=== PATIENT | male | born 1975 | race Caucasian/White ===

== ENCOUNTER → 2017-05-18 | Outpatient (CLI) | payer BC ==
--- NOTE | 2017-05-18 11:00 | P.STRESS ---
- Stress Test Note Stress Test Results/Findings: Exam Performed: stress test Exam Date: 05/18/17 Height: 5 ft 9 in Weight: 99.337 kg Protocol: jazmine Stage: 4 Duration of Exercise: 11:00 Resting Heart Rate: 89 Resting Blood Pressure: 120/86 Maximum Achieved Heart Rate: 164 Maximum Achieved Blood Pressure: 186/73 85% PMHR: 151 100% PMHR: 178 METS: 12.1 Technologist Comment: Stress Test Results/Findings: Baseline EKG shows sinus rhythm normal lites normal intervals. Patient exercised on Jazmine protocol for a total of 11 minutes achieving 12 metastases 92 % of predicted maximum heart rate without chest pain or diagnostic ST segment depression Conclusions Excellent exercise tolerance Negative stress test by EKG criteria
== END ==
LOC: RADNMMAIN 10:08
PROVIDERS: ATTEND Family Medicine
DX: R94.31 Abnormal electrocardiogram [ECG] [EKG] (principal)
CPT/HCPCS: 93017

== ENCOUNTER 2018-08-02 10:51 | Day surgery (SDC) | payer BC ==
[2018-07-31 13:05] VITALS: BMI 31.7
[~2018-08-02 10:51] MED LIST: HYDROmorphone 0.5 MG/0.5 ML SYRINGE IVP PRN; LACTATED RINGERS 1,000 ML IV SCH; LIDOCAINE 1% 20 ML VIAL (10MG/ML) FOR IV START INTRADERMA PRN
[2018-08-02 12:23] VITALS: RESP 16; TEMP 97.3
[2018-08-02] MEDS ORDERED: fentaNYL (PF) 50 MCG/ML 2 ML AMP ONE (13:28)
[2018-08-02] MEDS ORDERED: PROPOFOL 10 MG/ML 20 ML VIAL IV ONE (13:28)
[2018-08-02] MEDS ORDERED: MIDAZOLAM 2 MG/2 ML VIAL ONE (13:28)
--- NOTE | 2018-08-02 13:45 | P.PCN ---
Date of Procedure: 08/02/18 Procedure(s) Performed: BRIEF HISTORY: Patient is a 43-year-old pleasant white male, scheduled for an elective colonoscopy as a part of screening for colon neoplasia. Father was diagnosed with colon cancer at age 53. PROCEDURE PERFORMED: Colonoscopy. PREOPERATIVE DIAGNOSIS: Screening for colon cancer/family history of colon cancer. IV sedation per Anesthesia. PROCEDURE: After informed consent was obtained, the patient, was brought into the endoscopy unit. IV sedation was administered by Anesthesia under continuous monitoring. Digital rectal examination was normal. Initially the Olympus CF- 160 flexible video colonoscope was then inserted in the rectum, gradually advanced into the cecum without any difficulty. Careful examination was performed as the scope was gradually being withdrawn. Ileocecal valve and the appendiceal orifice were visualized and appeared normal. Prep was excellent. Mucosa of the cecum, ascending colon, transverse colon, descending colon, sigmoid colon, and rectum appeared normal. Retroflexion was performed in the rectum and no lesions were seen. The patient tolerated the procedure well. IMPRESSION: Normal-appearing colon from rectum to cecum with no evidence of colorectal neoplasia. RECOMMENDATIONS: Findings of this examination were discussed with the patient well as his family. He was advised to have a repeat screening colonoscopy in 5 years because of the strong family history of colon cancer.
[2018-08-02 14:09] VITALS: BP 130/80; PULSE 74
== END 2018-08-02 14:34 | disposition home or self-care (01) ==
LOC: ORWHC2ENDO 10:51
PROVIDERS: ATTEND Internal Medicine Gastroenterology
DX: Z12.11 Encounter for screening for malignant neoplasm of colon (principal); Z80.0 Family history of malignant neoplasm of digestive organs; Z79.51 Long term (current) use of inhaled steroids; Z79.899 Other long term (current) drug therapy
CPT/HCPCS: J2250; J3010; J2704; G0105

== ENCOUNTER → 2018-09-10 | Outpatient (CLI) | payer BC ==
[2018-09-10 16:15] LABS: Basophils % (A) 1 %; Eosinophils # (A) 0.3 k/uL (0-0.7); Eosinophils % (A) 5 %; HCT 46.2 % (39.0-53.0); HGB 15.8 gm/dL (13.0-17.5); Lymphocytes # (A) 1.7 k/uL (1.0-4.8); Lymphocytes % (A) 31 %; MCH 30.3 pg (25.0-35.0); MCHC 34.3 g/dL (31.0-37.0); MCV 88.3 fL (80.0-100.0); Mean Platelet Volume 7.2; Monocytes # (A) 0.3 k/uL (0-1.0); Monocytes % (A) 5 %; Neutrophils % (A) 56 %; Platelet Count 241 k/uL (150-450); RBC 5.23 m/uL (4.30-5.90); RDW 12.9 % (11.5-15.5); WBC 5.3 k/uL (3.8-10.6)
== END | disposition home or self-care (01) ==
LOC: LABPAT 15:35
PROVIDERS: ATTEND Orthopaedic Surgery
DX: Z01.812 Encounter for preprocedural laboratory examination (principal); M67.431 Ganglion, right wrist
CPT/HCPCS: 36415; 80051; 85025

== ENCOUNTER 2018-10-03 11:35 | Day surgery (SDC) | payer BC ==
[2018-09-30 15:27] VITALS: BMI 31.7
--- NOTE | 2018-10-02 18:41 | HP ---
HISTORY AND PHYSICAL REASON FOR ADMISSION: Surgery 10/03/2018 Fantasma Montgomery is a 43-year-old patient seen with symptomatic right ganglion cyst. We discussed treatment options. He elected to proceed with surgical excision. Consent was obtained. PAST MEDICAL HISTORY: Noncontributory. PAST SURGICAL HISTORY: Appendectomy. DAILY MEDICATIONS: None. ALLERGIES: None reported. SOCIAL HISTORY: Patient denies tobacco use. PHYSICAL EXAMINATION: Physical evaluation of the right wrist, there is a ganglion cyst measuring 1 x 1 cm, raised 1 cm, freely mobile. It is located along the radial volar aspect of the wrist. Distal neurovascular exam is intact. Good range of motion of the wrist and digits. Radiographs of right wrist fail to reveal osseous abnormality. IMPRESSION: Symptomatic right ganglion cyst. PLAN: Excision right ganglion cyst. Surgery scheduled for 10/03/2018. MMODL / IJN: [id number] /
[~2018-10-03 11:35] MED LIST changes: +DEXAMETHASONE SOD PHOSPHATE 10 MG/ML 1 ML VIAL IV ONE; +MIDAZOLAM 2 MG/2 ML VIAL IV PRN; +ONDANSETRON 4 MG/2 ML VIAL IVP ONE; +ceFAZolin IN SWFI 2 GM/20 ML SYRINGE IVP ONE; +fentaNYL (PF) 50 MCG/ML 2 ML AMP IV PRN
[2018-10-03] MEDS ORDERED: LIDOCAINE 1% INJ 10MG/ML (20 ML MDV) ONE (14:18)
[2018-10-03] MEDS ORDERED: fentaNYL (PF) 50 MCG/ML 2 ML AMP ONE (14:18)
[2018-10-03] MEDS ORDERED: PROPOFOL 10 MG/ML 20 ML VIAL IV ONE (14:18)
[2018-10-03] MEDS ORDERED: MIDAZOLAM 2 MG/2 ML VIAL ONE (14:18)
[2018-10-03] MEDS ORDERED: BUPIVACAIN-EPI 0.25%-1:200,000 30 ML VIAL SQ ONE ×2 (14:22)
--- NOTE | 2018-10-03 15:00 | P.OP ---
Date of Procedure: 10/03/18 Preoperative Diagnosis: Right wrist symptomatic ganglion cyst Postoperative Diagnosis: Same Procedure(s) Performed: Excision right wrist ganglion cyst Anesthesia: LORENZO, local Surgeon: Josh Melendez Estimated Blood Loss (ml): 1 Pathology: none sent Condition: stable Disposition: PACU Indications for Procedure: 43-year-old patient seen with a symptomatically right wrist ganglion cyst. After treatment options were discussed with him he elected to proceed with surgical excision. Operative Findings: see description of procedure Description of Procedure: The patient was taken to the operative suite. The patient received preoperative IV antibiotics. Patient underwent a general anesthetic by the department of anesthesia. A well-padded tourniquet was placed proximal right upper extremity. The right upper extremity was prepped and draped in the normal sterile orthopedic fashion. The extremity is elevated and tourniquet was insufflated to 250. I made an incision in the year of the volar ganglion cyst sharply through skin. I carefully dissected down to the cyst. This is was identified. It was carefully dissected out. It was cut right at the stalk. The stalk was cauterized. The wound was irrigated with saline. The skin was approximated with nylon suture. We did infiltrate the area with 4 mL of quarter percent Marcaine. We applied sterile dressings. The tourniquet was released with immediate cap refill all digits noted. Patient was awakened, transferred to a bed and recovery stable condition.
[2018-10-03 15:02] VITALS: TEMP 97.8
[2018-10-03] MEDS ORDERED: LACTATED RINGERS 1,000 ML IV ONE (15:34)
[2018-10-03 15:47] VITALS: RESP 16
[2018-10-03 16:06] VITALS: BP 118/74; PULSE 76
== END 2018-10-03 16:15 | disposition home or self-care (01) ==
LOC: OR 11:35
PROVIDERS: ATTEND Orthopaedic Surgery
DX: M67.431 Ganglion, right wrist (principal); Z79.51 Long term (current) use of inhaled steroids; Z91.09 Other allergy status, other than to drugs and biological substances
CPT/HCPCS: 25111; J2250; J1100; J2405; J2001; J3010; J2704

== ENCOUNTER → 2020-05-14 | Outpatient (CLI) | payer BC | END | disposition home or self-care (01) | LOC: LABWHC1 08:37 | PROVIDERS: ATTEND Family Medicine | DX: Z03.89 Encounter for observation for other suspected diseases and conditions ruled out (principal) ==

== ENCOUNTER → 2023-11-01 | Outpatient (CLI) | payer BC ==
--- NOTE | 2023-11-01 16:56 | P.SLEEP ---
History of Present Illness DATE: 11/01/2023 CONSULTATION/NEW PATIENT EVALUATION HISTORY OF PRESENT ILLNESS/SLEEP-WAKE EVALUATION: 48 year old gentleman had been evaluated in the sleep center for possible obstructive sleep apnea hypopnea syndrome. SLEEP SCHEDULE: Usually sleep schedule from 9:30 PM to 5 AM on weekdays and from 11 PM to 7 AM on weekend. FALLING ASLEEP: No problems with falling asleep. DURING SLEEP: Patient has loud snoring and witnessed episodes of stop breathing during the sleep by his . Patient wakes up from sleep up to 10 times. In the morning patient wake up diet No history of hypnogogical hallucinations, sleep paralysis, or cataplexy. DURING THE DAY/WAKE STATE: , Has episodes of irritability and claustrophobia. [place] sleepiness scale is increased to 11. Usually patient doesn't take naps. PAST MEDICAL HISTORY: Hypertension, hyperlipidemia, acid reflux. PAST SURGICAL HISTORY: Appendectomy. MEDICATIONS: Losartan 100 mg once a day. SOCIAL HISTORY: Negative for smoking, alcohol consumption occasional. FAMILY HISTORY: Hypertension, hyperlipidemia, emphysema, cancer, acid reflux. REVIEW OF SYSTEMS: Loud snoring, multiple awakenings from sleep, sleepiness during the day. No fevers. No double vision. No recent chest pain. No shortness of breath. No abdominal pain. No bleeding episodes. No blood in urine. No seizure episodes. PHYSICAL EXAMINATION: GENERAL: A pleasant patient without any distress. VITAL SIGNS: BP 137/89 , HR 76 , RR 16 , weight 226.4 pounds, height 5 foot 8-1/4 inches, body mass index 34.1 . HEENT: PERRLA, EOMI. Evaluation of oropharynx showed tongue protrudes midline, low position of soft palate Mallampati 4. NECK: Supple. No JVD. Thyroid is not palpable. 17-1/3 inches in circumference. LUNGS: Clear to percussion and to auscultation. Good air exchange. No wheezing or rhonchi. HEART: S1, S2 regular. No murmurs, gallops or rubs. ABDOMEN: Soft and nontender. Bowel sounds are present. No organomegaly appreciated. EXTREMITIES: No clubbing or cyanosis. CAP COVERER: Awake, alert, and oriented x3. Cranial nerves 2 to 7 intact. There is no fasciculation or atrophy noted. No focal deficits observed. ASSESSMENT: 1. Loud snoring, witnessed episodes of stop breathing during the sleep, multiple awakenings from sleep, extremely low position of soft palate Mallampati 4, wide neck 17-1/3 inches in circumference, sleepiness with [place] Sleepiness Scale of 11. Obstructive sleep apnea hypopnea syndrome. 2. Mild obesity BMI 34.1. 3. Hypertension. 4. Hyperlipidemia. 5 acid reflux. 6 . Status post appendectomy. PLAN: 1. Home sleep apnea test for evaluation of patient's breathing during sleep. 2. Following plan after reading sleep study. 3. Preferable position during sleep on the side. 4. No driving if patient feels any sleepiness. Patient is aware of civil and criminal liability for unsafe driving. 5. Sleep hygiene with regular sleep time for at least 7.5-8 hours. 6. Watching and losing weight. Thank you very much for referring this patient for consultation. Sincerely, Juan José Goldberg MD, PhD, FAASM. Diplomat of [place] [employer], Sleep Medicine Board by [place] [employer] [place] [employer] Cleaning Professional of [facility] [place] Past Medical History Additional Past Medical History / Comment(s): environmental allergies, irregular heart rate History of Any Multi-Drug Resistant Organisms: None Reported Past Surgical History: Appendectomy Past Anesthesia/Blood Transfusion Reactions: No Reported Reaction Past Psychological History: No Psychological Hx Reported Past Alcohol Use History: Occasional Past Drug Use History: None Reported - Past Family History Father Family Medical History: Cancer Additional Family Medical History / Comment(s): colon cancer Medications and Allergies Home Medications Medication Instructions Recorded Confirmed Type Albuterol Sulfate [Proair Hfa] 2 puff INHALATION Q6HR PRN 07/31/18 10/03/18 History Budesonide-Formot 160-4.5 Mcg 2 puff INHALATION BID PRN 07/31/18 10/03/18 History [Symbicort 160-4.5 Mcg Inhaler] traMADol HCl [Ultram] 50 mg PO Q6H PRN #12 tab 10/03/18 Rx Allergies Allergy/AdvReac Type Severity Reaction Status Date / Time grass pollen Allergy sinus Verified 09/30/18 15:22 congestion and wheezing dust mite dander Allergy sinus Uncoded 09/30/18 15:22 congestion and wheezing Sleep Note - Sleep Note Sleep Note: Temperature: Pulse Rate: Respiratory Rate: Blood Pressure: SpO2: Height: Weight: BMI: Neck Circumference:
== END ==
LOC: 3 N SLEEP 15:28
PROVIDERS: ATTEND Internal Medicine
DX: G47.33 Obstructive sleep apnea (adult) (pediatric) (principal); E66.9 Obesity, unspecified; I10 Essential (primary) hypertension; E78.5 Hyperlipidemia, unspecified; K21.9 Gastro-esophageal reflux disease without esophagitis; Z90.49 Acquired absence of other specified parts of digestive tract; Z68.34 Body mass index [BMI] 34.0-34.9, adult; R06.83 Snoring; Z91.048 Other nonmedicinal substance allergy status
CPT/HCPCS: 99202

== ENCOUNTER → 2023-11-23 | Outpatient (CLI) | payer BC ==
--- NOTE | 2023-11-28 14:12 | P.PCN ---
Description of Procedure: CLINICAL: A home sleep apnea test has been done for confirmation of possible obstructive sleep apnea-hypopnea syndrome. DESCRIPTION OF PROCEDURE: RESULTS: Recording time was 6 hours 58 minutes. Evaluation time was 6 hours 46 minutes. Evaluation time is sufficient for making conclusion about results of the test. Raw data of sleep recording has been reviewed and is adequate. Respiratory channel showed 59 apneas and 142 hypopneas. Apnea-hypopnea index was 29.7 per hour. Pulse rate in the range between minimum 64, maximum 120, average 77 by computer calculation. Lowest desaturation was 82%. IMPRESSION: 1. Moderate, borderline to Severe Obstructive Sleep Apnea Hypopnea Syndrome. Please see other impressions from consultation. PLAN: 1. The patient should have PAP titration for correction of respiratory abnormallities during sleep. 2. I will see patient for follow up visit to discuss results of the test, evaluate clinical response on treatment with PAP therapy and make any necessary adjustments related to mask fitting, pressure, and humidification. 3. Watching and losing weight. 4. Sleep hygiene with regular time in bed for at least 8 hours. 5. No driving if feeling any sleepiness. Thank you very much for allowing me to participate in the management of your patient. Sincerely, Juan José Goldberg MD, PhD, FAASM Diplomat of [place] [employer] Sleep Medicine Board of [place] [employer] Plaster Foreman of [facility] [place]
== END ==
LOC: 3 N SLEEP 12:50
PROVIDERS: ATTEND Internal Medicine
DX: G47.33 Obstructive sleep apnea (adult) (pediatric) (principal); Z91.09 Other allergy status, other than to drugs and biological substances; Z91.048 Other nonmedicinal substance allergy status

== ENCOUNTER 2024-01-08 19:30 | Outpatient (CLI) | payer BC ==
--- NOTE | 2024-01-09 12:12 | P.PCN ---
Description of Procedure: CLINICAL: Titration with positive air pressure has been done for correction of respiratory abnormalities during sleep. DESCRIPTION OF PROCEDURE: The standard montage for clinical polysomnography included the electroencephalogram, the electrocardiogram, the mentalis surface electromyography and Lead II cardiography. The respiratory battery consisted of measurements of nasal /buccal air flow, pressure transducer measurements from the nose, thoracic and /or abdominal effort and intercostal surface electromyography. Video monitoring has been done to check for any parasomnia events. Nocturnal oxyhemoglobin saturations were obtained by finger oximetry. Step-sheriff titration with positive airway pressure was utilized to control respiratory events. Raw data of sleep recording has been reviewed and is adequate. RESULTS: Sleep efficiency was normal 89.2 %. Latency to sleep onset was normal 24.5 minutes.]. Sleep architecture showed stage N1 was extremely short 1.0 %, Delta sleep was normal 13.7 %, REM sleep was significantly increased to 43.5 %, possibly REM sleep rebound phenomenon. Heart rate was minimum 64 BPM, maximum 71 BPM, average 67 BPM. EMG showed 13.2 periodic limb movements per hour with 0 micriarousals per hour. PAP titration have been done with CPAP up to the pressure 10 cm H2O. . The best results were at the pressure 10 cm H2O. Apnea hypopnea index reduced to 3.1. IMPRESSION: 1. Obstructive sleep apnea hypopnea syndrome on controle with PAP treatment. 2. Periodic limb movements have been documented at the beginning of the the sleep study. Please see other impressions from consultation. PLAN: 1. The patient will have treatment with positive air pressure equipment with the level of pressure AutoPAP 5-11 cm H2O and should use it every night for the whole night. 2. Watching and losing weight. 3. Sleep hygiene with regular time in bed for at least 8 hours. 4. No driving if feeling any sleepiness. 5. I will see the patient for follow up visit to explain the results of the test, recommendations, check compliance with treatment and make any necessary adjustment related to mask fitting, pressure and humidification. 6. Please check iron profile including ferritin level. Low level of iron may increase risk for periodic limb movements Thank you very much for allowing me to participate in the management of your patient. Sincerely, Juan José Goldberg MD, PhD, FAASM Diplomat of [place] [employer] Sleep Medicine Board of [place] [employer] Title Inspector of [facility] [place]
== END 2024-01-09 05:15 | disposition home or self-care (01) ==
LOC: 3 N SLEEP 19:30
PROVIDERS: ATTEND Internal Medicine
DX: G47.33 Obstructive sleep apnea (adult) (pediatric) (principal); G47.61 Periodic limb movement disorder; Z91.09 Other allergy status, other than to drugs and biological substances; Z91.048 Other nonmedicinal substance allergy status
CPT/HCPCS: 95811

== ENCOUNTER → 2024-03-19 | Outpatient (CLI) | payer BC ==
[2024-03-19 16:06] VITALS: BP 117/79; PULSE 70; RESP 16; TEMP 98.2
--- NOTE | 2024-03-19 17:19 | P.PN ---
Subjective DATE: 03/19/2024 FOLLOW UP VISIT. Patient with obstructive sleep apnea hypopnea syndrome return to sleep center for follow-up visit. Recently patient had sleep study which documented obstructive sleep apnea hypopnea syndrome. Patient was initiated on PAP therapy and today is first visit after treatment was started. Patient was able to use PAP equipment every night. After starting to use CPAP blood pressure is improved to the normal range Patient does have some problems related to the mask pressure and humidity [place] sleepiness scale is 2, which is normal. I checked information from PAP unit. PAP unit pressure 5-11, average 10.8 cm H2O. Usage is 97% and 77% for more then 4 hours, average 6 hours per night. Leak is 15 l/m, which is in acceptable range. Apnea Hypopnea Index is 3.1, which is normal. I explained to the patient about adjustments of humidity and temperature in the tube. A ramp was changed to auto regimen. During physical exam: GENERAL: A pleasant patient without any distress. VITAL SIGNS: Please see below. HEENT: PERRLA, EOMI.low position of soft palate, Mallapati 4 . NECK: Supple. No JVD. LUNGS: Clear to percussion and to auscultation. Good air exchange. No wheezing or rhonchi. HEART: S1, S2 regular. ABDOMEN: Soft and nontender.[] EXTREMITIES: No clubbing or cyanosis. SUPERVISOR MATRIX: Awake, alert, and oriented x3. No focal deficit. Impressions: 1. Obstructive sleep apnea-hypopnea syndrome. Patient demonstrated good compliance with treatment, benefiting from treatment. 2. History of hypertension, on treatment with CPAP blood pressure normalized. 3. Mild obesity. 4. Hyperlipidemia. 5. Acid reflux. 6. Status post appendectomy. Plan: 1. Continue using PAP equipment every night for the whole night. 2. To change air filter at least 1-2 times per month. 3. PAP unit should stay lower then position of the head. 4. Advised patient to remove all remaining water from humidifier canister daily and make it dry after each usage. Refill canister with fresh distilled water before each usage. 5. Sleep hygiene with regular time in bed for at least 8 hours. 6. Precautions related to driving. No driving if feel any sleepiness. 7. I will maintain prescription for PAP supplies including mask, tube, filters. 8. Follow up visit in 6 months or earlier if patient has any problems. 9. Watching and losing weight. Thank you very much for allowing me to participate in the management of your patient. Juan José Goldberg MD, PhD, FAASM. Diplomat of [place] [employer], Sleep Medicine Board by [place] [employer] Medical Scientific Liaison of [facility] [place] Objective - Vital Signs Vital signs: Vital Signs Temp 98.2 F 03/19/24 15:50 Pulse 70 03/19/24 15:50 Resp 16 03/19/24 15:50 BP 117/79 03/19/24 15:50 Pulse Ox 97 03/19/24 15:50 FiO2
== END ==
LOC: 3 N SLEEP 15:12
PROVIDERS: ATTEND Internal Medicine
DX: G47.33 Obstructive sleep apnea (adult) (pediatric) (principal); E66.9 Obesity, unspecified; E78.5 Hyperlipidemia, unspecified; I10 Essential (primary) hypertension; K21.9 Gastro-esophageal reflux disease without esophagitis; Z90.49 Acquired absence of other specified parts of digestive tract; Z99.89 Dependence on other enabling machines and devices; Z98.890 Other specified postprocedural states; Z91.09 Other allergy status, other than to drugs and biological substances; Z91.048 Other nonmedicinal substance allergy status; Z79.899 Other long term (current) drug therapy
CPT/HCPCS: 99212

== ENCOUNTER 2024-07-11 12:00 | Day surgery (SDC) | payer BC ==
[~2024-07-11 12:00] MED LIST changes: -DEXAMETHASONE SOD PHOSPHATE 10 MG/ML 1 ML VIAL IV ONE; -HYDROmorphone 0.5 MG/0.5 ML SYRINGE IVP PRN; +LACTATED RINGERS 1,000 ML BAG ONE; -LACTATED RINGERS 1,000 ML IV SCH; -LIDOCAINE 1% 20 ML VIAL (10MG/ML) FOR IV START INTRADERMA PRN; -MIDAZOLAM 2 MG/2 ML VIAL IV PRN; -ONDANSETRON 4 MG/2 ML VIAL IVP ONE; -ceFAZolin IN SWFI 2 GM/20 ML SYRINGE IVP ONE; -fentaNYL (PF) 50 MCG/ML 2 ML AMP IV PRN
[2024-07-11] MEDS ORDERED: PROPOFOL 10 MG/ML 20 ML VIAL IV ONE (12:10)
--- NOTE | 2024-07-11 15:58 | PCN ---
PROCEDURE NOTE REQUESTING PHYSICIAN: Dr. Francesca Diamond. BRIEF HISTORY: The patient is a 49-year-old pleasant white male scheduled for an elective colonoscopy as a part of evaluation for prior history of colon polyps and family history of colon cancer. His dad was diagnosed with colon cancer at age 50. PROCEDURE PERFORMED: Colonoscopy with snare polypectomy. PREOPERATIVE DIAGNOSIS: History of colon polyps and family history of colon cancer in dad at age 50. ANESTHESIA: IV sedation per Anesthesia. DESCRIPTION OF PROCEDURE: After informed consent was obtained from the patient, he was brought in to the endoscopy unit. IV conscious sedation was administered by Anesthesia under continuous monitoring. Initial digital rectal examination was normal. The Olympus CF-190 video colonoscope was then inserted in the rectum, gradually advanced into the cecum. Careful examination was performed as the scope was gradually being withdrawn. The ileocecal valve and appendiceal orifice were visualized and appeared normal. The prep was excellent. Mucosa of the cecum, in the base of the cecum there was a 1 cm broad- based flat polyp removed by cold snare polypectomy. Ascending colon, transverse colon, descending colon, sigmoid colon and rectum appeared normal. In the rectum, retroflexion was performed. No lesions were noted. The patient tolerated the procedure well. IMPRESSION: 1. A 1-cm flat cecal polyp, status post cold snare polypectomy. 2. Rest of the colon appeared normal. RECOMMENDATIONS: Findings of this examination were discussed with the patient as well as his family. He was advised to follow up with the biopsy results and have a repeat colonoscopy in 3 years. MMODL / IJN: [id number] /
== END 2024-07-11 13:20 ==
LOC: ORWHC2ENDO 12:00
PROVIDERS: ATTEND Internal Medicine Gastroenterology
DX: Z12.11 Encounter for screening for malignant neoplasm of colon (principal); I10 Essential (primary) hypertension; Z80.0 Family history of malignant neoplasm of digestive organs; Z79.899 Other long term (current) drug therapy
CPT/HCPCS: 45385; 88305

== ENCOUNTER 2024-07-19 14:35 | Emergency (ER) | payer BC ==
[2024-07-19 15:01] VITALS: TEMP 98.3
[2024-07-19] MEDS: SODIUM CHLORIDE 0.9% 1,000 ML IV STA (16:08)
[2024-07-19 16:25] LABS: Basophils % (A) 0 %; Eosinophils # (A) 0.2 k/uL (0-0.7); Eosinophils % (A) 3 %; HCT 39.2 % (39.0-53.0); HGB 13.3 gm/dL (13.0-17.5); Lymphocytes # (A) 1.6 k/uL (1.0-4.8); Lymphocytes % (A) 31 %; MCH 30.3 pg (25.0-35.0); MCHC 33.9 g/dL (31.0-37.0); MCV 89.3 fL (80.0-100.0); Mean Platelet Volume 7.6; Monocytes # (A) 0.3 k/uL (0-1.0); Monocytes % (A) 6 %; Neutrophils # (A) 3.1 k/uL (1.3-7.7); Neutrophils % (A) 58 %; Platelet Count 289 k/uL (150-450); RBC 4.39 m/uL (4.30-5.90); RDW 12.9 % (11.5-15.5); WBC 5.3 k/uL (3.8-10.6)
[2024-07-19 16:32] LABS: Partial Thromboplastin Time 24.9 sec (22.0-30.0)
[2024-07-19 16:48] LABS: ALT 13 U/L (4-49); AST 23 U/L (17-59); African American GFR (CKD) >90 (>60 ml/min/1.73 sqM); Albumin 3.8 g/dL (3.5-5.0); Alkaline Phosphatase 48 U/L (38-126); Anion Gap 5 mmol/L; Blood Urea Nitrogen 16 mg/dL (9-20); Calcium 9.4 mg/dL (8.4-10.2); Carbon Dioxide 28 mmol/L (22-30); Chloride 105 mmol/L (98-107); Glucose 93 mg/dL (74-99); Lipase 115 U/L (23-300); Non-African American GFR(CKD) >90 (>60 ml/min/1.73 sqM); Potassium 3.7 mmol/L (3.5-5.1); Sodium 138 mmol/L (137-145); Total Bilirubin 0.6 mg/dL (0.2-1.3); Total Protein 6.4 g/dL (6.3-8.2)
--- NOTE | 2024-07-19 17:17 | ED ---
General Adult HPI - General Chief complaint: GI Bleed Stated complaint: GI Bleed Time Seen by Provider: 07/19/24 15:15 Source: patient Mode of arrival: ambulatory Limitations: no limitations - History of Present Illness Initial comments: Patient is a pleasant 49 y/o male presenting today for hematochezia x 1 day. Colonoscopy done by Dr. Bryant approx 1 week ago. 1 polyp removed. No complications. Yesterday patient had soft bloody stool, described as blood mixed with stool. 3 more bloody stools today described the same way. Unable to quantify amount of blood in stool. Patient began to feel lightheaded so presented to the ED. Denies shortness of breath, chest pain, abdominal pain, fevers, vomiting. Endorsed mild nausea. Is not on blood thinners. - Related Data Home Medications Medication Instructions Recorded Confirmed Losartan Potassium 100 mg PO PC-SUPPER 07/19/24 07/19/24 hydroCHLOROthiazide 12.5 mg PO PC-SUPPER 07/19/24 07/19/24 Allergies Allergy/AdvReac Type Severity Reaction Status Date / Time grass pollen Allergy sinus Verified 07/19/24 18:25 congestion and wheezing dust mite dander Allergy sinus Uncoded 07/19/24 18:25 congestion and wheezing Review of Systems ROS Statement: Those systems with pertinent positive or pertinent negative responses have been documented in the HPI. Past Medical History Additional Past Medical History / Comment(s): environmental allergies, irregular heart rate History of Any Multi-Drug Resistant Organisms: None Reported Past Surgical History: Appendectomy Additional Past Surgical History / Comment(s): Polyp removed from colon. Past Anesthesia/Blood Transfusion Reactions: No Reported Reaction Past Psychological History: No Psychological Hx Reported Smoking Status: Never smoker Past Alcohol Use History: Occasional Past Drug Use History: None Reported - Past Family History Father Family Medical History: Cancer Additional Family Medical History / Comment(s): colon cancer General Exam - General Exam Comments Initial Comments: PE: CONSTITUTIONAL: No apparent distress, well appearing SKIN: Warm, dry, no jaundice, hives or petechiae, no pallor EYES: Pupils are equally round, extraocular movements intact without nystagmus, clear conjunctiva, non-icteric sclera HENT: Normocephalic, atraumatic, moist mucus membranes, oropharynx clear without exudates NECK: , Full range of motion, normal appearance PULMONARY: Clear to auscultation without wheezes, rhonchi, or rales, normal excursion, no accessory muscle use and no stridor CARDIOVASCULAR: Regular rate, rhythm, normal S1 and S2. No appreciated murmurs, rubs or gallops. Strong radial pulses with intact distal perfusion. No lower extremity edema GASTROINTESTINAL: Soft, non-tender, non-distended, no palpable masses, no rebound or guarding. No hepatosplenomegaly; rectal exam performed with DEANDRE Ren at bedside, showed hematochezia on digital rectal exam, no fissures or hemorrhoids or masses MUSCULOSKELETAL: Extremities have no gross deformity, no edema, redness, or swelling. NEUROLOGIC:_a/o x 3, GCS 15, normal mentation and speech. Moves all extremities x 4 without motor or sensory deficit PSYCHIATRIC:_normal mood and affect, thought process is clear and linear Limitations: no limitations Course Vital Signs 07/19/24 07/19/24 07/19/24 14:59 16:20 18:00 Temperature 98.3 F Pulse Rate 77 68 76 Respiratory 15 16 18 Rate Blood Pressure 128/81 115/87 109/83 O2 Sat by Pulse 97 Oximetry 07/19/24 20:47 Temperature Pulse Rate 77 Respiratory 18 Rate Blood Pressure 106/79 O2 Sat by Pulse 98 Oximetry Medical Decision Making - Medical Decision Making Was pt. sent in by a medical professional or institution (, [facility], [employer], urgent care, hospital, or [place] health [place] facility...) When possible be specific @ -No Did you speak to anyone other than the patient for history (EMS, parent, family, police, friend...)? What history was obtained from this source @ -No Did you review nursing and triage notes (agree or disagree)? Why? @ -I reviewed and agree with nursing and triage notes Were old charts reviewed (outside hosp., previous admission, EMS record, old EKG, old radiological studies, urgent care reports/EKG's, [place] health care facility records)? Report findings @ -Colonoscopy performed by Dr. Roberts, note reviewed, significant for 1 cm broad- based polyp at the cecum that was subsequently removed, patient was reported to have tolerated the procedure well Differential Diagnosis (chest pain, altered mental status, abdominal pain women, abdominal pain men, vaginal bleeding, weakness, fever, dyspnea, syncope, headache, dizziness, GI bleed, back pain, seizure, CVA, palpatations, mental health, musculoskeletal)? @ -Differential diagnosis remains broad however top considerations include: Gastritis, diverticulosis, inflammatory bowel disease, hemorrhoids, fissure, colitis, postop complication this is not meant to be an all-inclusive list. X-rays interpreted by me (1pt min.). @ -None done CT interpreted by me (1pt min.). @ -I see no evidence of active contrast extravasation to indicate hemorrhage U/S interpreted by me (1pt. min.). @ -None done What testing was considered but not performed or refused? (CT, X-rays, U/S, labs)? Why? @ -None What meds were considered but not given or refused? Why? @ -None Did you discuss the management of the patient with other professionals (professionals i.e. , PA, [employer], lab, RT, psych nurse, social work therapist, video recorder mechanic, teacher, annual giving officer, child support case officer)? Give summary @ -I did discuss this case with Dr. Redmond, general surgery because Dr. Bryant/gastroenterology was not available director operations; discussed with Dr. Redmond consideration of observing patient overnight, if patient decided that he would like to be observed overnight Dr. Redmond was kindly willing to be available for consultation should patient need repeat scope. We did discuss that given patient's stable hemoglobin, stable vitals and bleeding that began yesterday it is unlikely that he will have further clinically significant bleeding. Was smoking cessation discussed for >3mins.? @ -No Was critical care preformed (if so, how long)? @ -No Were there social determinants of health that impacted care today? How? (Homelessness, low income, unemployed, alcoholism, drug addiction, transportation, low edu. Level, literacy, decrease access to med. care, half-way, rehab)? @ -No Was there de-escalation of care discussed even if they declined (Discuss DNR or withdrawal of care, Hospice)? @ -No What co-morbidities impacted this encounter? (DM, HTN, Smoking, COPD, CAD, Cancer, CVA, ARF, Chemo, Hep., AIDS, mental health diagnosis, sleep apnea, morbid obesity)? @ -None Was patient admitted / discharged? Hospital course, mention meds given and route, prescriptions, significant lab abnormalities, going to OR and other pertinent info. @ -Hospital course patient is a pleasant 49-year-old gentleman presenting 1 week status post colonoscopy with polyp removal for hematochezia. Began noticing lightheadedness today so and decided to the ER. Is not on blood thinners. Abdomen is soft and nontender. Rectal exam performed with DEANDRE Andrade as railway head tender at bedside. Maroon colored stool on glove. CT for GI bleed ordered, CBC, CMP, pt/ptt, type and cross. Patient denies any pain currently. No pallor or conjunctival pallor noted. Patient denies any pain Labs reviewed. Grossly within normal limits. Abnormal values not concerning for acute pathology related to presenting complaint. Discussed with patient reassuring labs and imaging. Shared decision making was used. Patient offered admission for observation, however given normal hgb approx 24 hours after start of hematochezia, no further bloody BMs in ED, no active GIB on CT, stable vitals, patient stable for discharge. Patient preferred discharge home at this point, and we discussed signs and symptoms warranting return to the ED. patient agreeable with plan of care. In my medical judgment there is currently no evidence of an immediate life- threatening or surgical condition. Discharge is therefore indicated at this time. Discharge treatment instructions, follow up instructions, and appropriate emergency department return precautions were discussed with the patient and/or medical decision maker. Patient and/or medical decision maker expressed understanding of and agreed with the treatment plan, follow up instructions, and emergency department return precaution. All patient's and/or medical decision maker's questions were answered. Undiagnosed new problem with uncertain prognosis? @ -No Drug Therapy requiring intensive monitoring for toxicity (Heparin, Nitro, Insulin, Cardizem)? @ -No Were any procedures done? @ -No Diagnosis/symptom? @ -Hematochezia Acute, or Chronic, or Acute on Chronic? @ -Acute Uncomplicated (without systemic symptoms) or Complicated (systemic symptoms)? @ -Located Side effects of treatment? @ -No Exacerbation, Progression, or Severe Exacerbation? @ -No Poses a threat to life or bodily function? How? (Chest pain, [place], [place], pneumonia, PE, COPD, DKA, ARF, appy, cholecystitis, CVA, Diverticulitis, Homicidal, Suicidal, threat to staff... and all critical care pts) @ -No - Lab Data Result diagrams: 07/19/24 16:12 07/19/24 16:12 Lab Results 07/19/24 07/19/24 07/19/24 Range/Units 16:05 16:12 16:12 WBC 5.3 (3.8-10.6) k/uL RBC 4.39 (4.30-5.90) m/uL Hgb 13.3 (13.0-17.5) gm/dL Hct 39.2 (39.0-53.0) % MCV 89.3 (80.0-100.0) fL MCH 30.3 (25.0-35.0) pg MCHC 33.9 (31.0-37.0) g/dL RDW 12.9 (11.5-15.5) % Plt Count 289 (150-450) k/uL MPV 7.6 Neutrophils % 58 % Lymphocytes % 31 % Monocytes % 6 % Eosinophils % 3 % Basophils % 0 % Neutrophils # 3.1 (1.3-7.7) k/uL Lymphocytes # 1.6 (1.0-4.8) k/uL Monocytes # 0.3 (0-1.0) k/uL Eosinophils # 0.2 (0-0.7) k/uL Basophils # 0.0 (0-0.2) k/uL PT 11.0 (10.0-12.5) sec INR 1.0 (<1.2) APTT 24.9 (22.0-30.0) sec Sodium (137-145) mmol/L Potassium (3.5-5.1) mmol/L Chloride (98-107) mmol/L Carbon Dioxide (22-30) mmol/L Anion Gap mmol/L BUN (9-20) mg/dL Creatinine (0.66-1.25) mg/dL Est GFR (CKD-EPI)AfAm (>60 ml/min/1.73 sqM) Est GFR (CKD-EPI)NonAf (>60 ml/min/1.73 sqM) Glucose (74-99) mg/dL Plasma Lactic Acid Isaac (0.7-2.0) mmol/L Calcium (8.4-10.2) mg/dL Total Bilirubin (0.2-1.3) mg/dL AST (17-59) U/L ALT (4-49) U/L Alkaline Phosphatase (38-126) U/L Total Protein (6.3-8.2) g/dL Albumin (3.5-5.0) g/dL Lipase (23-300) U/L Blood Type O Negative Blood Type Confirm Blood Type Recheck No Previous Record Bld Type Recheck Status CABO Indicated Antibody Screen NEGATIVE Spec Expiration Date 07/22/2024 - 230407/19/24 07/19/24 07/19/24 Range/Units 16:12 16:12 17:11 WBC (3.8-10.6) k/uL RBC (4.30-5.90) m/uL Hgb (13.0-17.5) gm/dL Hct (39.0-53.0) % MCV (80.0-100.0) fL MCH (25.0-35.0) pg MCHC (31.0-37.0) g/dL RDW (11.5-15.5) % Plt Count (150-450) k/uL MPV Neutrophils % % Lymphocytes % % Monocytes % % Eosinophils % % Basophils % % Neutrophils # (1.3-7.7) k/uL Lymphocytes # (1.0-4.8) k/uL Monocytes # (0-1.0) k/uL Eosinophils # (0-0.7) k/uL Basophils # (0-0.2) k/uL PT (10.0-12.5) sec INR (<1.2) APTT (22.0-30.0) sec Sodium 138 (137-145) mmol/L Potassium 3.7 (3.5-5.1) mmol/L Chloride 105 (98-107) mmol/L Carbon Dioxide 28 (22-30) mmol/L Anion Gap 5 mmol/L BUN 16 (9-20) mg/dL Creatinine 0.98 (0.66-1.25) mg/dL Est GFR (CKD-EPI)AfAm >90 (>60 ml/min/1.73 sqM) Est GFR (CKD-EPI)NonAf >90 (>60 ml/min/1.73 sqM) Glucose 93 (74-99) mg/dL Plasma Lactic Acid Isaac 1.0 (0.7-2.0) mmol/L Calcium 9.4 (8.4-10.2) mg/dL Total Bilirubin 0.6 (0.2-1.3) mg/dL AST 23 (17-59) U/L ALT 13 (4-49) U/L Alkaline Phosphatase 48 (38-126) U/L Total Protein 6.4 (6.3-8.2) g/dL Albumin 3.8 (3.5-5.0) g/dL Lipase 115 (23-300) U/L Blood Type Blood Type Confirm O Negative Blood Type Recheck Bld Type Recheck Status Antibody Screen Spec Expiration Date Disposition Clinical Impression: Hematochezia Disposition: HOME SELF-CARE Condition: Good Instructions (If sedation given, give patient instructions): Gastrointestinal Bleeding (ED) Additional Instructions: Every disease is a spectrum and a small chance still exists that a serious condition could develop, for this reason, please monitor yourself closely for new, changing or worsening symptoms, further bloody stools, grossly bloody stools or passing blood clots in your stool, lightheadedness, dizziness, shortness of breath, confusion or feeling if you are going to pass out, new abdominal pain, fever, inability to tolerate/keep down fluids or your medications, inability to follow up with outpatient providers as instructed and should you experience these symptoms or should you have any further concerns for your wellbeing please return to the ED or call 911 immediately. Please follow-up with Dr. Bryant, on Sunday PLEASE call your primary care physician as soon as possible to arrange / discuss plan for followup appointment. Appointment in the next 1-3 days is strongly encouraged if possible. PLEASE let us know here before you leave if there is anything further we can do to be of any assistance. Take care and feel Better! Is patient prescribed a controlled substance at d/c from ED?: No Referrals: Francesca Diamond MD [Primary Care Provider] - 1-2 days Time of Disposition: 19:26
--- NOTE | 2024-07-19 17:51 | CT ---
EXAMINATION TYPE: CT abdomen without IV contrast. CT angiogram abdomen. CT angiogram pelvis. CT DLP: 2325 mGycm, Automated exposure control for dose reduction was used. DATE OF EXAM: 07/19/2024 5:36 PM COMPARISON: None CLINICAL INDICATION: Male, 49 years old with history of GI bleed; PHH, bleeding after colonoscopy TECHNIQUE: CT axial imaging of the abdomen and pelvis without and with contrast. Multiple thin slice sub-millimeter images were obtained after administration of contrast. 3-D reconstructed images and m aximum intensity projection images were obtained. CT Contrast: Contrast used:100 mL of Isovue 370 without and with IV Contrast, Oral contrast used: without Oral Contrast None FINDINGS: CTA Abdomen and pelvis: The abdominal aorta does not demonstrate aneurysmal dilatation.. The origins of the superior mesenteric artery, renal arteries, inferior mesenteric artery, and celiac axis are p atent. The iliac vessels are normal in morphology LOWER CHEST: No evidence of focal consolidation, pneumothorax or pleural effusion. LIVER: Unremarkable GALLBLADDER AND BILE DUCTS: Unremarkable. PANCREAS: Unremarkable. SPLEEN: Unremarkable. ADRENAL GLANDS: Unremarkable. KIDNEYS AND URETERS: No evidence of hydronephrosis or renal calculus. The ureters are unremarkable. PELVIS BLADDER: Unremarkable REPRODUCTIVE: Unremarkable. ABDOMEN & PELVIS STOMACH AND BOWEL: Evaluation of the gastrointestinal tract demonstrates no evidence of high density hemorrhage on arterial phase or pooling of blood on delayed phases. No evidence of bowel obstruction. PERITONEUM: No evidence of pneumoperitoneum or free fluid. MUSCULOSKELETAL: No acute osseous abnormalities LYMPH NODES: No gross evidence for lymphadenopathy. SOFT TISSUE/ABDOMINAL WALL: Unremarkable IMPRESSION No evidence for gastrointestinal hemorrhage. No evidence for aneurysm, occlusion or dissection. No ac deering abdominal process.
[2024-07-19 18:09] VITALS: RESP 18
[2024-07-19 20:49] VITALS: BP 106/79; PULSE 77
== END 2024-07-19 20:48 | disposition home or self-care (01) ==
LOC: EC 14:35
DX: K92.2 Gastrointestinal hemorrhage, unspecified
CPT/HCPCS: 36415; 74174; 80053; 83605; 83690; 85025; 85610; 85730; 86850; 86900; 86901; 99285

== ENCOUNTER → 2024-10-15 | Outpatient (CLI) | payer BC ==
[2024-10-15 17:12] VITALS: BP 132/88; PULSE 82; RESP 16; TEMP 98.3
--- NOTE | 2024-10-15 17:25 | P.PROGSL ---
Subjective DATE: 10/15/2024 FOLLOW UP VISIT. Patient with obstructive sleep apnea hypopnea syndrome return to sleep center for follow-up visit. Information from previous visit have been reviewed. Patient is using PAP equipment every night for the whole night, getting PAP supplies in time. The patient does not have significant problems with the mask, PAP unit and humidification. Bement sleepiness scale is 2, which is normal. I checked information from PAP unit. PAP unit pressure 5-11, average 10.7 cm H2O. Usage is 97% and 87% for more then 4 hours, average 7.5 hours per night. Leak is slightly increased to 28.5 l/m, which is in acceptable range. Apnea Hypopnea Index is 2.2, which is normal. MEDICATIONS have been reviewed, please see below. During physical exam: GENERAL: A pleasant patient without any distress. VITAL SIGNS: Please see below, weight is 228 lbs. HEENT: PERRLA, EOMI.low position of soft palate, Mallapati 4 . NECK: Supple. No JVD. LUNGS: Clear to percussion and to auscultation. Good air exchange. No wheezing or rhonchi. HEART: S1, S2 regular. ABDOMEN: Soft and nontender.[] EXTREMITIES: No clubbing or cyanosis. CORRECTIONS OFFICER: Awake, alert, and oriented x3. No focal deficit. Impressions: 1. Obstructive sleep apnea-hypopnea syndrome. Patient demonstrated great compliance with treatment, benefiting from treatment. 2. Obesity, BMI 34.6. 3. Hyperlipidemia. 4. Hypertension. 5. Acid reflux. 6. Status post appendectomy. Plan: 1. Continue using PAP equipment every night for the whole night. 2. Sleep hygiene with regular time in bed for at least 7.5-8 hours 3. PAP unit should stay lower then position of the head. 4. Advised patient to remove all remaining water from humidifier canister daily and make it dry after each usage. Refill canister with fresh distilled water before each usage. 5. Watching and losing weight. 6. Precautions related to driving. No driving if feel any sleepiness. 7. I will maintain prescription for PAP supplies including mask, tube, filters. 8. Follow up visit in 8 months or earlier if patient has any problems. Thank you very much for allowing me to participate in the management of your patient. Juan José Goldberg MD, PhD, FAASM. Diplomat of [place] [employer], Sleep Medicine Board by [place] [employer] [facility] [place] Objective - Vital Signs Vital Signs: Vital Signs Temp 98.3 F 10/15/24 17:08 Pulse 82 10/15/24 17:08 Resp 16 10/15/24 17:08 BP 132/88 10/15/24 17:08 Pulse Ox 97 10/15/24 17:08 FiO2 Intake & Output 10/14/24 10/15/24 10/15/24 18:59 06:59 18:59 Weight 103.419 kg Home Medications: Home Medications Medication Instructions Recorded Confirmed Type Losartan Potassium 100 mg PO PC-SUPPER 07/19/24 10/15/24 History hydroCHLOROthiazide 12.5 mg PO PC-SUPPER 07/19/24 10/15/24 History
== END ==
LOC: 3 N SLEEP 16:15
PROVIDERS: ATTEND Internal Medicine
DX: G47.33 Obstructive sleep apnea (adult) (pediatric) (principal); E66.9 Obesity, unspecified; E78.5 Hyperlipidemia, unspecified; I10 Essential (primary) hypertension; K21.9 Gastro-esophageal reflux disease without esophagitis; Z98.890 Other specified postprocedural states; Z99.89 Dependence on other enabling machines and devices; Z68.34 Body mass index [BMI] 34.0-34.9, adult; Z91.09 Other allergy status, other than to drugs and biological substances; Z79.899 Other long term (current) drug therapy
CPT/HCPCS: 99212